=== PATIENT | female | born 1945 | race Caucasian/White ===

== ENCOUNTER 2022-06-22 08:08 | Day surgery (SDC) | payer MEDICARE ==
[~2022-06-22] VITALS: Ht 157.5 cm; Wt 72.8 kg
[~2022-06-22 08:08] MED LIST: ALLEGRA; ALPR.25 PO; ALPR.5 PO; AMLO5 PO; AMOCLA875 PO; ATEN50 PO; BELPTAB PO; ESTR1 PO; ESTR2 PO; EZET10 PO; EZET10-40 PO; FEXO180 PO; FLUC150A PO; HYDACE5 PO; LETR2.5 PO; LISI20 PO; LOSA50 PO; MELO7.5 PO; Neurontin 300300 MG PO; PANT40 PO; SALS500 PO; SPIR25 PO; TELM80 PO; TOLT2 PO; TOLT4 PO; TRAM50 PO; Toviaz8 MG PO
--- NOTE | 2022-06-22 09:13 | NUR ---
06/22/22 0913 Jennifer Loza AT 0911 [address] [id number]
== END 2022-06-22 10:55 | disposition home or self-care (01) ==
LOC: ORSCSDS 08:08
PROVIDERS: Ophthalmology
PROC: 08DK3ZZ Extraction of Left Lens, Percutaneous Approach (ICD-10-PCS; principal; 2022-06-22 09:30)
DX: H25.12 Age-related nuclear cataract, left eye (principal); Z96.1 Presence of intraocular lens; I10 Essential (primary) hypertension; E78.00 Pure hypercholesterolemia, unspecified; K21.9 Gastro-esophageal reflux disease without esophagitis; J44.9 Chronic obstructive pulmonary disease, unspecified; Z87.891 Personal history of nicotine dependence; Z79.899 Other long term (current) drug therapy
CPT/HCPCS: J2001; J2250; J3010; J3301; J7040; V2632

== ENCOUNTER → 2023-01-23 | Outpatient (CLI) | payer MEDICARE ==
[2023-01-23 13:22] LABS: Creatinine Urine 57.6 mg/dL (27.00-270.00); Protein, Urine Quantitative 14.4 mg/dL (0.0-11.9)
[2023-01-23 13:51] LABS: Microalbumin, Urine Quant. 5.32 mg/L (0.000-20.000)
== END ==
LOC: LAB SHORT 10:13 → LAB 10:13
PROVIDERS: Internal Medicine Nephrology
DX: N18.2 Chronic kidney disease, stage 2 (mild) (principal); D63.1 Anemia in chronic kidney disease; N25.81 Secondary hyperparathyroidism of renal origin; R76.9 Abnormal immunological finding in serum, unspecified; R94.5 Abnormal results of liver function studies; R94.6 Abnormal results of thyroid function studies; D51.8 Other vitamin B12 deficiency anemias; D52.8 Other folate deficiency anemias; D50.9 Iron deficiency anemia, unspecified
CPT/HCPCS: 81050; 82043; 82570; 84156

== ENCOUNTER → 2023-02-13 | Outpatient (CLI) | payer MEDICARE ==
[2023-02-16 14:12] LABS: M-SPIKE, % 29.3 % (Not Observed); M-SPIKE, MG/24 HR 26.7 mg/24 hr (Not Observed); PROTEIN,TOTAL,URINE 9.1 mg/dL (Not Estab.)
== END | disposition home or self-care (01) ==
LOC: LAB 08:20 → LAB SHORT 08:20
PROVIDERS: Nurse Practitioner
DX: D47.2 Monoclonal gammopathy (principal); M89.8X9 Other specified disorders of bone, unspecified site
CPT/HCPCS: 81050; 84166

== ENCOUNTER → 2023-02-20 | Outpatient (CLI) | payer MEDICARE | END | disposition home or self-care (01) | LOC: LAB SHORT 14:30 → PLD 14:30 | DX: C44.319 Basal cell carcinoma of skin of other parts of face (principal) | CPT/HCPCS: 88305 ==

== ENCOUNTER → 2024-04-30 | Outpatient (CLI) | payer MEDICARE ==
[2024-04-30 17:33] LABS: Adenovirus F 40/41 Not Detected (NOT DETECT); Astrovirus Not Detected (NOT DETECT); Campylobacter Sp Not Detected (NOT DETECT); Cryptosporidium Not Detected (NOT DETECT); Cyclospora Cayetanensis Not Detected (NOT DETECT); E. Coli O157 Not Detected (NOT DETECT); Entamoeba Histolytica Not Detected (NOT DETECT); Enteroaggregative E. coli-EAEC Not Detected (NOT DETECT); Enteropathogenic E. coli-EPEC Not Detected (NOT DETECT); Enterotoxigenic E. coli-ETEC Not Detected (NOT DETECT); Giardia Lamblia Not Detected (NOT DETECT); Norovirus GI/GII Not Detected (NOT DETECT); Plesiomonas Shigelloides Not Detected (NOT DETECT); Rotavirus A Not Detected (NOT DETECT); Salmonella Sp Not Detected (NOT DETECT); Sapovirus Not Detected (NOT DETECT); Shiga Toxin-prod E. coli-STEC Not Detected (NOT DETECT); Shigella/Enteroin E. coli-EIEC Not Detected (NOT DETECT); Vibrio Cholerae Not Detected (NOT DETECT); Vibrio Sp Not Detected (NOT DETECT); Yersinia Enterocolitica Not Detected (NOT DETECT)
== END | disposition home or self-care (01) ==
LOC: LAB SHORT 09:10 → LAB 09:10 → LAB FUT 04-25 16:05
PROVIDERS: Nurse Practitioner
DX: C50.919 Malignant neoplasm of unspecified site of unspecified female breast (principal)
CPT/HCPCS: 87338; 87507